=== PATIENT | female | born 1990 | race Asian ===

== ENCOUNTER 2016-11-14 15:16 | Outpatient (CLI) | payer OTHER | END 2016-11-14 19:07 | disposition home or self-care (01) | LOC: RAD 15:16 | DX: M25.562 Pain in left knee (principal) ==

== ENCOUNTER 2017-03-08 19:34 | Emergency (ER) | payer OTHER ==
[~2017-03-08] VITALS: Ht 175.3 cm; Wt 77.1 kg
[2017-03-08 20:45] VITALS: BP 115/75; TEMP 98.3
== END 2017-03-08 20:48 | disposition home or self-care (01) ==
LOC: ED 19:34
DX: Z48.02 Encounter for removal of sutures (principal)

== ENCOUNTER 2017-03-19 21:23 | Outpatient (CLI) | payer OTHER | END 2017-03-19 22:30 | disposition home or self-care (01) | LOC: RAD 21:23 | DX: M25.571 Pain in right ankle and joints of right foot (principal); M25.561 Pain in right knee ==

== ENCOUNTER 2017-05-15 20:24 | Emergency (ER) | payer OTHER ==
[~2017-05-15] VITALS: Ht 175.3 cm; Wt 84.4 kg
[2017-05-15 22:24] VITALS: BP 124/79; TEMP 98.3
== END 2017-05-15 22:26 | disposition home or self-care (01) ==
LOC: ED 20:24
DX: J02.9 Acute pharyngitis, unspecified (principal)
CPT/HCPCS: 99282